=== PATIENT | female | born 1995 | race Caucasian/White ===

== ENCOUNTER 2020-12-21 13:00 | Inpatient (IN) | payer OTHER ==
[~2020-12-21 13:00] MED LIST: BENTYL10 MG PO; FEOSOL325 MG PO; LACTINEX1 EACH PO; LEVAQUIN750 MG PO; REGLAN10 MG PO
[2020-12-21 19:22] LABS: HCT 37.6 % (37.0-47.0); HGB 12.5 g/dl (12.5-16.0); MCH 29.1 pg (25.0-31.0); MCHC 33.2 g/dL (32.0-36.0); MCV 87.6 fL (78.0-100.0); MPV 11.4 fL (6.0-9.5); RBC 4.29 M/uL (4.20-5.40); RDW 12.3 % (11.5-14.0); WBC 14.5 K/uL (4.0-10.5)
[2020-12-21 19:33] LABS: BILIRUBIN NEGATIVE (NEGATIVE); BLOOD NEGATIVE Ery/uL (NEGATIVE); CLARITY CLEAR (CLEAR); COLOR YELLOW (YELLOW); GLUCOSE (U) NORMAL (NORMAL); LEUKOCYTES NEGATIVE Leu/uL (NEGATIVE); NITRITE NEGATIVE (NEGATIVE); PROTEIN NEGATIVE (NEGATIVE); UROBILINOGEN 0.2 mg/dL (0.2-1.0); pH 6.5 (5.0-9.0)
[2020-12-23 06:37] LABS: HGB 11.1 g/dL (12.5-16.0)
--- NOTE | 2020-12-23 16:41 | NUR ---
REFERRAL FOR RESOURCES ESPECIALLY WIC IN [facility]. MET WITH THE PT. S HE WAS HOLDING HER AND APPEARED TO BE VERY ATTENTIVE. THIS IS HER SECOND CHILD SHE HAS A 2 YEAR OLD BOY. SHE RESIDES WITH [facility] IN A [address] IN [place], [place]. SHE STATES THAT IT HAS MODERN CONVIENCES. SHE WANTED TO KNOW WHERE TO APPLY FOR WIC IN [facility]. [facility]ED [facility] OF [facility] AND NUMBER. ALSO ADVISED HER OF THE HANDS PROGRAM. SHE IS AWARE OF THE PROGRAM, BUT WOULD RATHER WAIT AND TALK WITH THE COSMETICIAN AT THE HEALTH DEPT. PT REPORTS THAT SHE HAS A CAR SEAT, BED, DIAPERS AND SUPPLIES FOR THE BABY. SHE WANTS TO USE DR. LILLY AT [facility] TO CHILDREN. THE BABY'S NAME IS ERIKA CASTORENA. THE NURSES DID NOT REPORT ANY CONCERNS REGARDING BONDING OR HER CARE OF THE .
== END 2020-12-24 10:44 | disposition home or self-care (01) | DRG 788 ==
LOC: FOB 13:00
PROVIDERS: Obstetrics & Gynecology; ADMIT Obstetrics & Gynecology
PROC: 10D00Z1 Extraction of Products of Conception, Low, Open Approach (ICD-10-PCS; principal; 2020-12-22 13:00)
DX: O34.211 Maternal care for low transverse scar from previous cesarean delivery (principal); O99.214 Obesity complicating childbirth; Z37.0 Single live birth; Z3A.38 38 weeks gestation of pregnancy; O24.429 Gestational diabetes mellitus in childbirth, unspecified control; O99.334 Smoking (tobacco) complicating childbirth; Z91.19 Patient's noncompliance with other medical treatment and regimen; Z20.822 Contact with and (suspected) exposure to COVID-19
CPT/HCPCS: 36415; 81003; 82009; 82947; 82962; 85014; 85018; 86850; 86900; 86901; 87088; J0690; J1200; J1885; J2274; J2370; J2405; J7120; U0002